=== PATIENT | male | born 1975 | race African-American/Black ===

== ENCOUNTER 2019-01-13 10:44 | Emergency (ER) | payer OTHER ==
[~2019-01-13] VITALS: Ht 175.3 cm; Wt 83.9 kg
[2019-01-13] MEDS ORDERED: BACTRIM DS TAB1 EACH PO (12:24)
[2019-01-13] MEDS ORDERED: KEFLEX500 M1 PO (12:24)
[2019-01-13 13:39] VITALS: BP 132/74
== END 2019-01-13 13:39 | disposition home or self-care (01) ==
LOC: ER 10:44
DX: L02.416 Cutaneous abscess of left lower limb (principal); L03.116 Cellulitis of left lower limb; W22.8XXA Striking against or struck by other objects, initial encounter; Y93.89 Activity, other specified; Y92.096 Garden or yard of other non-institutional residence as the place of occurrence of the external cause; Y99.0 Civilian activity done for income or pay